=== PATIENT | male | born 1950 | race Caucasian/White ===

== ENCOUNTER 2017-04-04 23:54 | Emergency (ER) | payer BC ==
[2017-04-05] MEDS ORDERED: CLINDAMYCIN 600MG/50ML PREMIX 600 MG/50 ML BAG IVPB ONE (00:26)
[2017-04-05] MEDS ORDERED: HYDROCODONE/APAP 5/325MG TABLET PO ONE (00:26)
[2017-04-05 00:45] LABS: BASO % 0.1 % (0-6); EOS % 2.2 % (0-6); GRAN % 76.6 % (47-80); HEMATOCRIT 33.8 % (42.0-52.0); HEMOGLOBIN 10.5 gm/dl (14.0-18.0); LYMPH % 13.7 % (16-45); MEAN CELL VOLUME 78.8 fl (81-97); MEAN CORPUSCULAR HGB CONC 31.1 g/dl (32-36); MEAN PLATELET VOLUME 10.1 fl (7.4-10.4); MONO % 7.4 % (0-9); PLATELET COUNT 241 K/uL (130-400); RED BLOOD COUNT 4.29 M/uL (4.40-5.70); RED CELL DISTRIBUTION WIDTH 15.6 % (11.5-14.5); WHITE BLOOD COUNT W/O DIFF 10.1 K/uL (4.2-12.2)
[2017-04-05 00:46] LABS: MEAN CORPUSCULAR HEMOGLOBIN 24.4 pg (27-33)
--- NOTE | 2017-04-05 00:46 | Emergency Department Record ---
History of Present Illness - General Chief complaint: Bite Insect/other Stated complaint: INSECT BITE/HAND SWELLING Time Seen by Provider: 04/05/17 00:14 Source: Patient Mode of Arrival: Ambulatory Limitations: No limitations - History of Present Illness Initial comments: pt has had 2 small blisters or bites on his hand which he has poked and has been squeezing multiple time getting clear liquid out. now the finger and part of the had have swelling and erythems and tenderness MD complaint: Insect bite/sting Onset/Timin -: Days(s) Patient Tetanus UTD (within 5 yrs): Yes Location: R hand Severity scale (1-10): 5 Quality: Aching Consistency: Constant Improves with: None Treatments Prior to Arrival: Attempted to drain pus at home Treatment Prior to Arrival Comment:: ice - Related Data Home Medications Medication Instructions Recorded Confirmed Last Taken Amlodipine Besylate [Norvasc] 10 mg PO DAILY 04/04/17 04/05/17 04/04/17 Atorvastatin Calcium 20 mg PO QHS 04/04/17 04/05/17 04/04/17 Hydrocodone/Acetaminophen [[place] 1 tab PO Q6H PRN 04/04/17 04/05/17 Unknown 7.5mg/325mg] Losartan/Hydrochlorothiazide 1 each PO DAILY 04/04/17 04/05/17 04/04/17 [Hyzaar 100-12.5 Tablet] Metformin HCl [Metformin HCl ER] 1,000 mg PO BID 04/04/17 04/05/17 04/04/17 Previous Rx's Medication Instructions Recorded Clindamycin HCl 150 mg PO TID #20 capsule 04/05/17 Clindamycin HCl 300 mg PO TID #20 capsule 04/05/17 Allergies Allergy/AdvReac Type Severity Reaction Status Date / Time azithromycin [From Zithromax] Allergy HIVES Verified 04/04/17 23:57 sulfamethoxazole Allergy HIVES Verified 04/04/17 23:57 [From Bactrim] trimethoprim [From Bactrim] Allergy HIVES Verified 04/04/17 23:57 Travel Screening - Travel/Exposure Within Last 30 Days Have you traveled within the last 30 days?: No - Travel Symptoms Symptom Screening: None Review of Systems Reviewed: No additional complaints except as noted below Constitutional: Reports: As per HPI. Denies: Chills, Fever, Malaise, Night sweats, Weakness, Weight change Eyes: Reports: As per HPI. Denies: Eye discharge, Eye pain, Photophobia, Vision change ENT: Reports: As per HPI. Denies: Congestion, Dental pain, Ear pain, Epistaxis , Hearing loss, Throat pain Respiratory: Reports: As per HPI. Denies: Cough, Dyspnea, Hemoptysis, Stridor, Wheezes Cardiovascular: Reports: As per HPI. Denies: Arrhythmia, Chest pain, Dyspnea on exertion, Edema, Murmurs, Orthopnea, Palpitations, Paroxysmal nocturnal dyspnea, Rheumatic Fever, Syncope Endocrine: Reports: As per HPI. Denies: Fatigue, Heat or cold intolerance, Polydipsia, Polyuria Gastrointestinal: Reports: As per HPI. Denies: Abdominal pain, Constipation, Diarrhea, Hematemesis, Hematochezia, Melena, Nausea, Vomiting Genitourinary: Reports: As per HPI. Denies: Dysuria, Frequency, Hematuria, Incontinence, Retention, Testicular pain, Testicular mass, Urgency Musculoskeletal: Reports: As per HPI. Denies: Arthralgia, Back pain, Gout, Joint swelling, Myalgia, Neck pain Skin: Reports: As per HPI. Denies: Bruising, Change in color, Change in hair/ nails, Lesions, Pruritus, Rash Neurological: Reports: As per HPI. Denies: Abnormal gait, Confusion, Headache, Numbness, Paresthesias, Seizure, Tingling, Tremors, Vertigo, Weakness Psychiatric: Reports: As per HPI. Denies: Anxiety, Auditory hallucinations, Depression, Homicidal thoughts, Suicidal thoughts, Visual hallucinations Hematological/Lymphatic: Reports: As per HPI. Denies: Anemia, Blood Clots, Easy bleeding, Easy bruising, Swollen glands Past Medical History - SOCIAL HISTORY Smoking Status: Former smoker - RESPIRATORY Hx Respiratory Disorders: No - CARDIOVASCULAR Hx Cardio Disorders: Yes Hx Hypertension: Yes Comment:: high cholesterol - NEURO Hx Neuro Disorders: No - GI Hx GI Disorders: Yes Hx of Polyps: Yes (1 removed) - Hx Genitourinary Disorders: Yes Hx Kidney Stones: Yes (lithotripsy) - ENDOCRINE Hx Endocrine Disorders: Yes Hx Diabetes: Yes Hx Thyroid Disease: No - MUSCULOSKELETAL Hx Musculoskeletal Disorders: No - PSYCH Hx Psych Problems: No - HEMATOLOGY/ONCOLOGY Hx Hematology/Oncology Disorders: No Family Medical History Any Significant Family History?: Yes Hx Diabetes: Mother Hx Heart Disease: Father Hx HTN: Father, Mother Physical Exam - General General Appearance: Alert, Oriented x3, Cooperative, Mild distress - Head Head exam: Normal inspection - Eye Eye exam: Normal appearance, PERRL, EOMI Pupils: Normal accommodation - ENT ENT exam: Normal exam, Mucous membranes moist, Normal external ear exam, Normal orophraynx Ear exam: Normal external inspection. negative: External canal tenderness Nasal Exam: Normal inspection. negative: Discharge, Sinus tenderness Mouth exam: Normal external inspection, Tongue normal Teeth exam: Normal inspection. negative: Dental caries Throat exam: Normal inspection. negative: Tonsillar erythema, Tonsillar exudate - Neck Neck exam: Normal inspection, Full ROM. negative: Tenderness - Respiratory Respiratory exam: Normal lung sounds bilaterally. negative: Respiratory distress - Cardiovascular Cardiovascular Exam: Regular rate, Normal rhythm, Normal heart sounds - GI/Abdominal GI/Abdominal exam: Soft, Normal bowel sounds. negative: Tenderness - Rectal Rectal exam: Deferred - exam: Deferred - Extremities Extremities exam: Full ROM, Normal capillary refill, Tenderness Image of Hand: 1 - swelling, erythema, 2 tiny punctures, drainage - Back Back exam: Reports: Normal inspection, Full ROM. Denies: Muscle spasm, Rash noted, Tenderness - Neurological Neurological exam: Alert, CN II-XII intact, Normal gait, Oriented X3 - Psychiatric Psychiatric exam: Normal affect, Normal mood - Skin Skin exam: Dry, Intact, Normal color, Warm Course Vital Signs 04/05/17 00:02 Temperature 97.8 F Pulse Rate 62 Respiratory 18 Rate Blood Pressure 147/74 Pulse Ox 99 Medical Decision Making - Lab Data Result diagrams: 04/05/17 00:28 Disposition Disposition: Discharge Clinical Impression: Cellulitis of hand Disposition: Home, Self-Care Condition: (1) Good Instructions: Insect Bite or Sting (ED), Cellulitis (ED) Additional Instructions: recheck tomorrow. return sooner if worse. keep hand elevated. Prescriptions: Clindamycin HCl 150 mg PO TID #20 capsule Clindamycin HCl 300 mg PO TID #20 capsule Forms: Patient Portal Access Quality - Quality Measures Quality Measures: N/A - Blood Pressure Screening Blood Pressure Classification: Hypertensive Reading Systolic Measurement: 147 Diastolic Measurement: 74 Screening for High Blood Pressure: < First Hypertensive BP, F/U Documented > [ G8950] First Hypertensive Follow-up Interventions: Follow-up with rescreen GT 1 day and LT 4 weeks.
== END 2017-04-05 01:15 | disposition home or self-care (01) ==
LOC: ER 23:54
DX: S60.561A Insect bite (nonvenomous) of right hand, initial encounter (principal); L03.113 Cellulitis of right upper limb; W57.XXXA Bitten or stung by nonvenomous insect and other nonvenomous arthropods, initial encounter
CPT/HCPCS: 85025; 96365; 99284

== ENCOUNTER 2017-04-05 16:00 | Observation (INO) | payer BC ==
--- NOTE | 2017-04-05 16:47 | Emergency Department Record ---
History of Present Illness - General Chief complaint: Bite Insect/other Stated complaint: BITE ON RT HAND Time Seen by Provider: 04/05/17 16:47 Source: Patient Mode of Arrival: Ambulatory Limitations: No limitations - History of Present Illness Initial comments: The patient is here due to developing pain and redness to his R hand for the last 2 days. He first noticed 2 blisters on the dorsal R 2nd finger 2 days ago and popped them. Over the last 2 days the finger and hand have become more swollen, red and painful. He was here in the ER this Am and did receive IV Abx' s and was discharged on Clindamycin. Now he feels he is no better so he is back. MD complaint: Rash Onset/Timin -: Days(s) Hx Tetanus Toxoid Vaccination: Yes Year of Tetanus Vaccination: last two years Patient Tetanus UTD (within 5 yrs): Yes (states within year or two) Improves with: Cold therapy Treatments Prior to Arrival: Attempted to drain pus at home, Antibiotic - Related Data Home Medications Medication Instructions Recorded Confirmed Last Taken Amlodipine Besylate [Norvasc] 10 mg PO DAILY 04/04/17 04/05/17 04/05/17 11:00 10 Atorvastatin Calcium 20 mg PO QHS 04/04/17 04/05/17 04/04/17 13:00 20 Hydrocodone/Acetaminophen [[place] 1 tab PO Q6H PRN 04/04/17 04/05/17 04/05/17 11: 00 7.5mg/325mg] 7.5 Losartan/Hydrochlorothiazide 1 each PO DAILY 04/04/17 04/05/17 04/05/17 11:00 [Hyzaar 100-12.5 Tablet] Metformin HCl [Metformin HCl ER] 1,000 mg PO BID 04/04/17 04/05/17 04/05/17 11: 00 1000mg Previous Rx's Medication Instructions Recorded Clindamycin HCl 150 mg PO TID #20 capsule 04/05/17 Clindamycin HCl 300 mg PO TID #20 capsule 04/05/17 Allergies Allergy/AdvReac Type Severity Reaction Status Date / Time azithromycin [From Zithromax] Allergy HIVES Verified 04/04/17 23:57 sulfamethoxazole Allergy HIVES Verified 04/04/17 23:57 [From Bactrim] trimethoprim [From Bactrim] Allergy HIVES Verified 04/04/17 23:57 Travel Screening - Travel/Exposure Within Last 30 Days Have you traveled within the last 30 days?: No - Travel/Exposure Within Last Year Have you traveled outside the [place] in the last year?: No - Additonal Travel Details Have you been exposed to anyone with a communicable illness?: No - Travel Symptoms Symptom Screening: None Review of Systems Constitutional: Denies: Chills, Fever Eyes: Denies: Eye discharge ENT: Denies: Congestion Respiratory: Denies: Cough Past Medical History - SOCIAL HISTORY Smoking Status: Former smoker Alcohol Use: None Drug Use: None - RESPIRATORY Hx Respiratory Disorders: No - CARDIOVASCULAR Hx Cardio Disorders: Yes Hx Hypertension: Yes Comment:: high cholesterol - NEURO Hx Neuro Disorders: No - GI Hx GI Disorders: Yes Hx of Polyps: Yes (1 removed) - Hx Genitourinary Disorders: Yes Hx Kidney Stones: Yes (lithotripsy) - ENDOCRINE Hx Endocrine Disorders: Yes Hx Diabetes: Yes Hx Thyroid Disease: No - MUSCULOSKELETAL Hx Musculoskeletal Disorders: No - PSYCH Hx Psych Problems: No - HEMATOLOGY/ONCOLOGY Hx Hematology/Oncology Disorders: No Family Medical History Any Significant Family History?: No Hx Diabetes: Mother Hx Heart Disease: Father Hx HTN: Father, Mother Physical Exam - General General Appearance: Alert, Oriented x3, Cooperative, No acute distress - Head Head exam: Atraumatic, Normocephalic, Normal inspection - Eye Eye exam: Normal appearance, PERRL - Neck Neck exam: Normal inspection, Full ROM. negative: Tenderness - Respiratory Respiratory exam: Normal lung sounds bilaterally. negative: Respiratory distress - Cardiovascular Cardiovascular Exam: Regular rate, Normal rhythm, Normal heart sounds - GI/Abdominal GI/Abdominal exam: Soft, Normal bowel sounds. negative: Tenderness - Extremities Extremities exam: Tenderness (There is warmth, tenderness and erythema to the dorsal R hand and proximal 2nd finger. There is a healing wound at the dorsal R 2nd finger but there is no abscess present.). negative: Normal inspection, Full ROM (There is mildly decreased full ROM to the R 2nd finger due to the dorsal tenderness and fullness. There is no flexor surface tenderness or swelling.) Course Vital Signs 04/05/17 16:13 Temperature 98.6 F Pulse Rate [ 88 Left Radial] Respiratory 20 Rate Blood Pressure 148/67 [Left Arm] Pulse Ox 97 - Reevaluation(s) Reevaluation #1: The patient is doing Ok at this time. He denies any new symptoms. I did discuss the plan with him and did recommend hospital admission and the patient agreed. I then did discuss the case with Constance (MARY) and she does accept the admission. 04/05/17 18:01 Medical Decision Making - Data Complexity MDM Data: Labs Ordered and/or Reviewed - Lab Data Result diagrams: 04/05/17 17:13 04/05/17 17:13 Disposition Disposition: Admit Clinical Impression: Cellulitis of hand Disposition: Still a Patient at [facility] Decision to Admit: Admit from ER Decision to Admit Date: 04/05/17 Decision to Admit Time: 18:02 Condition: (2) Stable Forms: Patient Portal Access Time of Disposition: 18:02 Quality - Quality Measures Quality Measures: N/A - Blood Pressure Screening View Details: Yes Blood Pressure Classification: Hypertensive Reading Systolic Measurement: 148 Diastolic Measurement: 67 Screening for High Blood Pressure: < Pre-Hypertensive BP, F/U Documented > [ G8950] Pre-Hypertensive Follow-up Interventions: Follow-up with rescreen every year.
[2017-04-05] MEDS ORDERED: CLINDAMYCIN 600MG/4ML VIAL 600 MG in 0.9 % SODIUM CHLORIDE 100ML 100 ML IV ONE (16:50)
[2017-04-05 17:33] LABS: BASO % 0.1 % (0-6); EOS % 1.3 % (0-6); GRAN % 78.9 % (47-80); HEMOGLOBIN 10.7 gm/dl (14.0-18.0); LYMPH % 11.9 % (16-45); MEAN CELL VOLUME 78.3 fl (81-97); MEAN CORPUSCULAR HGB CONC 31.5 g/dl (32-36); MEAN PLATELET VOLUME 10.2 fl (7.4-10.4); MONO % 7.8 % (0-9); PLATELET COUNT 258 K/uL (130-400); RED BLOOD COUNT 4.34 M/uL (4.40-5.70); RED CELL DISTRIBUTION WIDTH 15.7 % (11.5-14.5); WHITE BLOOD COUNT W/O DIFF 10.1 K/uL (4.2-12.2)
[2017-04-05 17:40] LABS: MEAN CORPUSCULAR HEMOGLOBIN 24.6 pg (27-33)
[2017-04-05 17:51] LABS: ANION GAP 14.7 (7-16); BLOOD UREA NITROGEN 17 mg/dL (9-20); C-REACTIVE PROTEIN 3.5 mg/dL (0.0-0.9); CARBON DIOXIDE 24.3 mmol/L (22-30); EST GLOMERULAR FILTRATION RATE > 60 ml/min; GLUCOSE,RANDOM 168 mg/dL (70-110)
[2017-04-05] MEDS ORDERED: ACETAMINOPHEN 500 MG TABLET PO PRN (19:41)
[2017-04-05] MEDS: CLINDAMYCIN 600MG/4ML VIAL 600 MG in 0.9 % SODIUM CHLORIDE 100ML 100 ML IV SCH (19:46)
[2017-04-05] MEDS: HYDROCODONE/APAP 7.5/325MG TABLET PO PRN (20:29)
[2017-04-05] MEDS: ATORVASTATIN 20 MG TABLET PO SCH (22:36)
[2017-04-06] MEDS: CLINDAMYCIN 600MG/4ML VIAL 600 MG in 0.9 % SODIUM CHLORIDE 100ML 100 ML IV SCH (04:01)
[2017-04-06] MEDS: HYDROCODONE/APAP 7.5/325MG TABLET PO PRN ×3 (07:10→20:36)
[2017-04-06] MEDS: METFORMIN 500 MG TABLET PO SCH ×2 (07:11→17:41)
--- NOTE | 2017-04-06 07:59 | History & Physical ---
History of Present Illness - Date of Service Date of Service for History & Physical: 04/06/17 - History of Present Illness Admitting Diagnosis: 1. Right Hand Cellulitis History of Present Illness: 66yo male with CC of hand pain and swelling. He has history of T2DM, htn, high cholesterol, kidney stones. The patient is here due to developing pain and redness to his R hand for the last 2 days. He first noticed 2 blisters on the dorsal R 2nd finger 2 days ago and popped them. Over the last 2 days the finger and hand have become more swollen, red and painful. He was here in the ER this Am and did receive IV Abx' s and was discharged on Clindamycin. Now he feels he is no better so he is back. While in the ED, he was noted to have swelling of the right dorsum of the right hand and index finger. CBC showed mild microcytic anemia. CMP was unremarkable. patient was afebrile. Patient was started on IV clindamycin and admitted for cellulitis of the right hand. 04/06/17- Patient states he thinks his hand looks and feels about the same. He reports the swelling really started fter he took a knife at home and opened up the "water blister" on the back on his index finger. Says the redness had spread initially throughout the back of the hand and up some of his other fingers but that started to improve with IV antibiotics received in ED yesterday morning. Reports the hand is tender but he denies any numbness/ tingling. He is able to move his fingers but does not have full range of motion due to swelling. He denies fevers, chills. Has never had an infection like this before. PCP: Nicole Travel Screening - Travel/Exposure Within Last 30 Days Have you traveled within the last 30 days?: No - Travel/Exposure Within Last Year Have you traveled outside the [place] in the last year?: No - Additonal Travel Details Have you been exposed to anyone with a communicable illness?: No - Travel Symptoms Symptom Screening: None Review of Systems Constitutional: Denies: Chills, Fever Eyes: Denies: Eye discharge ENT: Denies: Congestion Respiratory: Denies: Cough Cardiovascular: Denies: Chest pain Gastrointestinal: Denies: Nausea, Vomiting Skin: Reports: Change in color, Rash Past Medical History - SOCIAL HISTORY Smoking Status: Former smoker Alcohol Use: None Drug Use: None - RESPIRATORY Hx Respiratory Disorders: No - CARDIOVASCULAR Hx Cardio Disorders: Yes Hx Hypertension: Yes Comment:: high cholesterol - NEURO Hx Neuro Disorders: No - GI Hx GI Disorders: Yes Hx of Polyps: Yes (1 removed) - Hx Genitourinary Disorders: Yes Hx Kidney Stones: Yes (lithotripsy) - ENDOCRINE Hx Endocrine Disorders: Yes Hx Diabetes: Yes Hx Thyroid Disease: No - MUSCULOSKELETAL Hx Musculoskeletal Disorders: No - PSYCH Hx Psych Problems: No - HEMATOLOGY/ONCOLOGY Hx Hematology/Oncology Disorders: No Family Medical History Any Significant Family History?: No Hx Diabetes: Mother Hx Heart Disease: Father Hx HTN: Father, Mother H&P Meds/Allergies - Allergies Allergies: Allergies Allergy/AdvReac Type Severity Reaction Status Date / Time azithromycin [From Zithromax] Allergy HIVES Verified 04/04/17 23:57 sulfamethoxazole Allergy HIVES Verified 04/04/17 23:57 [From Bactrim] trimethoprim [From Bactrim] Allergy HIVES Verified 04/04/17 23:57 - Home Medications Home Medications Medication Instructions Recorded Confirmed Last Taken Amlodipine Besylate [Norvasc] 10 mg PO DAILY 04/04/17 04/05/17 04/05/17 11:00 10 Atorvastatin Calcium 20 mg PO QHS 04/04/17 04/05/17 04/04/17 13:00 20 Hydrocodone/Acetaminophen [[place] 1 tab PO Q6H PRN 04/04/17 04/05/17 04/05/17 11: 00 7.5mg/325mg] 7.5 Losartan/Hydrochlorothiazide 1 each PO DAILY 04/04/17 04/05/17 04/05/17 11:00 [Hyzaar 100-12.5 Tablet] Metformin HCl [Metformin HCl ER] 1,000 mg PO BID 04/04/17 04/05/17 04/05/17 11: 00 1000mg Previous Rx's Medication Instructions Recorded Clindamycin HCl 150 mg PO TID #20 capsule 04/05/17 Clindamycin HCl 300 mg PO TID #20 capsule 04/05/17 - Active Medications Active Medications: Current Medications Acetaminophen (Tylenol 500mg Tab) 500 mg PO Q6H PRN PRN Reason: PAIN/TEMP Hydrocodone Bitart/Acetaminophen ([place] 7.5mg/325mg) 1 each PO Q6H PRN PRN Reason: Pain - General Last Admin: 04/06/17 07:10 Dose: 1 each Amlodipine Besylate (Norvasc) 10 mg PO DAILY [facility] Atorvastatin Calcium (Lipitor) 20 mg PO QHS [facility] Last Admin: 04/05/17 22:36 Dose: 20 mg Hydrochlorothiazide (Hctz 12.5mg) 12.5 mg PO DAILY [facility] Clindamycin Phosphate 600 mg/ (Sodium Chloride) 104 mls @ 200 mls/hr IV Q8H [facility] Stop: 04/10/17 19:42 Last Infusion: 04/06/17 04:40 Dose: Infused Losartan Potassium (Losartan Potassium) 100 mg PO DAILY [facility] Metformin HCl (Glucophage Ir) 1,000 mg PO BIDWM [facility] Last Admin: 04/06/17 07:11 Dose: 1,000 mg Physical Exam - Vital Signs Vital Signs: Vital Signs - Last 24 Hrs Temp Pulse Resp BP Pulse Ox 04/06/17 05:54 98.5 F 74 18 99/68 94 L 04/05/17 21:00 16 04/05/17 19:41 99.5 F 82 24 121/58 97 - General General Appearance: Alert, Oriented x3, Cooperative, No acute distress Limitations: No limitations - Head Head exam: Atraumatic, Normocephalic, Normal inspection - Eye Eye exam: Normal appearance, PERRL - Neck Neck exam: Normal inspection, Full ROM. negative: Tenderness - Respiratory Respiratory exam: Normal lung sounds bilaterally. negative: Respiratory distress - Cardiovascular Cardiovascular Exam: Regular rate, Normal rhythm, Normal heart sounds - GI/Abdominal GI/Abdominal exam: Soft, Normal bowel sounds. negative: Tenderness - Extremities Extremities exam: Normal capillary refill, Tenderness (There is warmth, tenderness and erythema to the dorsal R hand and proximal 2nd finger. There is a healing wound at the dorsal R 2nd finger but there is no abscess present.). negative: Normal inspection, Full ROM (There is mildly decreased full ROM to the R 2nd finger due to the dorsal tenderness and fullness. There is no flexor surface tenderness or swelling.) - Neurological Neurological exam: Alert, Oriented X3 - Psychiatric Psychiatric exam: Normal affect, Normal mood Results - Labs Result Diagrams: 04/06/17 08:13 04/06/17 08:13 VTE H&P Assessment - Risk for VTE Risk for VTE: Yes Risk Level: Moderate Risk Assessment Date: 04/06/17 Risk Assessment Time: 11:30 VTE Orders Placed or Will Be Placed: Yes Plan - Inpatient Certification Inpatient Certification: 04/07/17 07:26 risk factors: age, cellulitis of the right hand, T2DM, failed outpatient therapy estimated stay: 48-72H services: IV antibiotics - Detailed Diagnosis and Plan (1) Cellulitis of hand Current Visit: Yes Status: Acute Base Code: L03.119 - CELLULITIS OF UNSPECIFIED PART OF LIMB Comment: 04/06/17- Right hand cellulitis following patient's attempmt to open a blister. There is swelling, erythme and tenderness of the dorsum of the right hand and index finger. neurovascularly intact. WBC count wnl and afebrile. No drainage present to culture. -continue clindamycin 600mg IV q8h. will transition therapy if no continued improvement -continue to monitor for signs of compartment syndrome -vitals q8H -repeat labs qam (2) Full code status Current Visit: Yes Status: Acute Base Code: Z78.9 - OTHER SPECIFIED HEALTH STATUS Comment: 04/06/17- patient is full code (3) DVT prophylaxis Current Visit: Yes Status: Acute Base Code: [id number] - Comment: 04/06/17- patient moderate risk with age and restricted mobility -will add lovenox 40mg sq daily
[2017-04-06 08:19] LABS: BASO % 0.1 % (0-6); EOS % 2.2 % (0-6); GRAN % 74.1 % (47-80); HEMATOCRIT 35.7 % (42.0-52.0); HEMOGLOBIN 11.2 gm/dl (14.0-18.0); LYMPH % 15.7 % (16-45); MEAN CELL VOLUME 77.9 fl (81-97); MEAN CORPUSCULAR HGB CONC 31.4 g/dl (32-36); MEAN PLATELET VOLUME 9.6 fl (7.4-10.4); MONO % 7.9 % (0-9); PLATELET COUNT 248 K/uL (130-400); RED BLOOD COUNT 4.58 M/uL (4.40-5.70); RED CELL DISTRIBUTION WIDTH 15.9 % (11.5-14.5)
[2017-04-06 08:22] LABS: MEAN CORPUSCULAR HEMOGLOBIN 24.4 pg (27-33)
[2017-04-06 08:32] LABS: ALB/GLOB RATIO 1.7 (1.1-1.8); ALBUMIN 4.7 gm/dL (3.5-5.0); ALKALINE PHOSPHATASE 79 U/L (38-126); ALT/SGPT 45 U/L (21-72); ANION GAP 13.5 (7-16); AST/SGOT 18 U/L (17-59); BILIRUBIN,TOTAL 1.34 mg/dL (0.2-1.3); BLOOD UREA NITROGEN 17 mg/dL (9-20); CARBON DIOXIDE 24.5 mmol/L (22-30); CREATININE 0.9 mg/dL (0.66-1.25); EST GLOMERULAR FILTRATION RATE > 60 ml/min; GLUCOSE,RANDOM 148 mg/dL (70-110); TOTAL PROTEIN 7.5 gm/dL (6.3-8.2)
[2017-04-06] MEDS: AMLODIPINE BESYLATE 5MG TAB PO SCH (09:36)
[2017-04-06] MEDS: LOSARTAN POTASSIUM 100 MG TABLET PO SCH (09:36)
[2017-04-06] MEDS: HYDROCHLOROTHIAZIDE 12.5 MG CAPSULE PO SCH (09:36)
[2017-04-06] MEDS: CLINDAMYCIN 600MG/50ML PREMIX 600 MG/50 ML BAG IVPB SCH ×2 (11:32→20:35)
[2017-04-06] MEDS: ATORVASTATIN 20 MG TABLET PO SCH (21:19)
[2017-04-07] MEDS: CLINDAMYCIN 600MG/50ML PREMIX 600 MG/50 ML BAG IVPB SCH ×2 (03:51→11:13)
[2017-04-07 07:24] LABS: BASO % 0.2 % (0-6); GRAN % 57.9 % (47-80); HEMATOCRIT 36.1 % (42.0-52.0); HEMOGLOBIN 11.2 gm/dl (14.0-18.0); LYMPH % 28.6 % (16-45); MEAN CELL VOLUME 77.5 fl (81-97); MONO % 9.3 % (0-9); PLATELET COUNT 266 K/uL (130-400); RED BLOOD COUNT 4.66 M/uL (4.40-5.70); RED CELL DISTRIBUTION WIDTH 15.9 % (11.5-14.5); WHITE BLOOD COUNT W/O DIFF 6.5 K/uL (4.2-12.2)
[2017-04-07] MEDS: METFORMIN 500 MG TABLET PO SCH ×2 (07:30→17:12)
[2017-04-07] MEDS: HYDROCODONE/APAP 7.5/325MG TABLET PO PRN (07:30)
--- NOTE | 2017-04-07 07:40 | Physician Progress Note ---
Subjective - Date Date of Physician Progress Note: 04/07/17 - Subjective Subjective Comment: 04/07/17- Patient states his hand is feeling better. Says the swelling in his hand has gone down significantly. the right index finger is still swollen, tender and red. reports increased range of motion now that the swelling is coming down. He denies any drainage from the wound. No fevers, chills, numbness , tingling or nausea. Objective - Vital Signs Vital Signs: Vital Signs - Last 24 Hrs Temp Pulse Resp BP Pulse Ox 04/07/17 04:00 98.7 F 67 18 120/55 94 L 04/06/17 21:00 99.1 F 71 18 121/49 98 04/06/17 13:00 97.6 F 74 18 138/67 98 04/06/17 08:46 20 - General General Appearance: Alert, Oriented x3, Cooperative, No acute distress Limitations: No limitations - Head Head exam: Atraumatic, Normocephalic, Normal inspection - Eye Eye exam: Normal appearance, PERRL - Neck Neck exam: Normal inspection, Full ROM. negative: Tenderness - Respiratory Respiratory exam: Normal lung sounds bilaterally. negative: Respiratory distress - Cardiovascular Cardiovascular Exam: Regular rate, Normal rhythm, Normal heart sounds - GI/Abdominal GI/Abdominal exam: Soft, Normal bowel sounds. negative: Tenderness - Extremities Extremities exam: Normal capillary refill, Tenderness (There is warmth, tenderness and erythema to the dorsal R hand and proximal 2nd finger. There is a healing wound at the dorsal R 2nd finger but there is no abscess present.). negative: Normal inspection, Full ROM (There is mildly decreased full ROM to the R 2nd finger due to the dorsal tenderness and fullness. There is no flexor surface tenderness or swelling.) - Neurological Neurological exam: Alert, Oriented X3 - Psychiatric Psychiatric exam: Normal affect, Normal mood Assessment and Plan - Assessment and Plan (1) Cellulitis of hand Current Visit: Yes Status: Acute Base Code: L03.119 - CELLULITIS OF UNSPECIFIED PART OF LIMB Comment: 04/07/17- improving. swelling of the dorsum of right hand resolving and erythema of the hand has resolved. remains swelling and erythema of the 1st digit. neurovascularly intact. WBC count wnl and afebrile. No drainage present to culture. CRP peaked at 5.1 and trending downward at 4.2 today. -transition to oral clindamycin 300mg po q6H -continue to monitor for signs of compartment syndrome -vitals q8H -repeat labs qam (2) Full code status Current Visit: Yes Status: Acute Base Code: Z78.9 - OTHER SPECIFIED HEALTH STATUS Comment: 04/07/17- patient is full code (3) DVT prophylaxis Current Visit: Yes Status: Acute Base Code: [id number] - Comment: 04/07/17- patient moderate risk with age and restricted mobility -lovenox 40mg sq daily Results - Labs Result Diagrams: 04/07/17 07:14 04/07/17 07:14 Labs Last 24 Hours: Laboratory Results - last 24 hr 04/06/17 04/06/17 04/06/17 08:13 08:13 08:13 WBC 9.0 RBC 4.58 Hgb 11.2 L Hct 35.7 L MCV 77.9 L MCH 24.4 L MCHC 31.4 L RDW 15.9 H Plt Count 248 MPV 9.6 Gran % 74.1 Lymphocytes % 15.7 L Monocytes % 7.9 Eosinophils % 2.2 Basophils % 0.1 Sodium 139 Potassium 4.1 Chloride 101 Carbon Dioxide 24.5 Anion Gap 13.5 BUN 17 Creatinine 0.9 Estimated GFR > 60 Random Glucose 148 H Calcium 9.4 Total Bilirubin 1.34 H AST 18 ALT 45 Alkaline Phosphatase 79 C-Reactive Protein 5.1 H Total Protein 7.5 Albumin 4.7 Globulin 2.8 Albumin/Globulin Ratio 1.7 04/07/17 07:14 WBC 6.5 RBC 4.66 Hgb 11.2 L Hct 36.1 L MCV 77.5 L MCH 24.0 L MCHC 31.0 L RDW 15.9 H Plt Count 266 MPV 10.0 Gran % 57.9 Lymphocytes % 28.6 Monocytes % 9.3 H Eosinophils % 4.0 Basophils % 0.2 Sodium Potassium Chloride Carbon Dioxide Anion Gap BUN Creatinine Estimated GFR Random Glucose Calcium Total Bilirubin AST ALT Alkaline Phosphatase C-Reactive Protein Total Protein Albumin Globulin Albumin/Globulin Ratio DVT/PE Assessment - Risk for VTE Risk for VTE: No Risk Level: Moderate Risk Assessment Date: 04/06/17 Risk Assessment Time: 11:30 VTE Orders Placed or Will Be Placed: Yes - Active Medicaitons Current Medications: Current Medications Acetaminophen (Tylenol 500mg Tab) 500 mg PO Q6H PRN PRN Reason: PAIN/TEMP Hydrocodone Bitart/Acetaminophen ([place] 7.5mg/325mg) 1 each PO Q6H PRN PRN Reason: Pain - General Last Admin: 04/07/17 07:30 Dose: 1 each Amlodipine Besylate (Norvasc) 10 mg PO DAILY [facility] Last Admin: 04/06/17 09:36 Dose: 10 mg Atorvastatin Calcium (Lipitor) 20 mg PO QHS [facility] Last Admin: 04/06/17 21:19 Dose: 20 mg Enoxaparin Sodium (Lovenox) 40 mg SQ DAILY [facility] Hydrochlorothiazide (Hctz 12.5mg) 12.5 mg PO DAILY [facility] Last Admin: 04/06/17 09:36 Dose: 12.5 mg Clindamycin Phosphate (Cleocin 600 [id number]) 600 mg in 50 mls @ 50 mls/hr IVPB Q8H [facility] Last Infusion: 04/07/17 05:00 Dose: Infused Losartan Potassium (Losartan Potassium) 100 mg PO DAILY [facility] Last Admin: 04/06/17 09:36 Dose: 100 mg Metformin HCl (Glucophage Ir) 1,000 mg PO BIDWM [facility] Last Admin: 04/07/17 07:30 Dose: 1,000 mg AMI Plan - Labs Result Diagrams: 04/07/17 07:14 04/07/17 07:14
[2017-04-07 07:41] LABS: ANION GAP 14.5 (7-16); BLOOD UREA NITROGEN 17 mg/dL (9-20); C-REACTIVE PROTEIN 4.2 mg/dL (0.0-0.9); CARBON DIOXIDE 24.5 mmol/L (22-30); EST GLOMERULAR FILTRATION RATE > 60 ml/min; GLUCOSE,RANDOM 130 mg/dL (70-110)
[2017-04-07] MEDS ORDERED: ENOXAPARIN 40 MG/0.4 ML SYR SQ SCH (10:00)
[2017-04-07] MEDS: HYDROCHLOROTHIAZIDE 12.5 MG CAPSULE PO SCH (10:02)
[2017-04-07] MEDS: LOSARTAN POTASSIUM 100 MG TABLET PO SCH (10:03)
[2017-04-07] MEDS: AMLODIPINE BESYLATE 5MG TAB PO SCH (10:03)
--- NOTE | 2017-04-07 13:24 | Discharge Summary ---
Providers Discharge Summary Date: 04/07/17 Date of admission: 04/05/17 19:27 Expected Date of Discharge: 04/07/17 Attending physician: VAHID BARRAZA Primary care physician: MARIE BRODY D.O. Physical Exam - Vital Signs Vital Signs: Vital Signs - Last 24 Hrs Temp Pulse Resp BP Pulse Ox 04/07/17 08:17 20 04/07/17 04:00 98.7 F 67 18 120/55 94 L 04/06/17 21:00 99.1 F 71 18 121/49 98 - General General Appearance: Alert, Oriented x3, Cooperative, No acute distress Limitations: No limitations - Head Head exam: Atraumatic, Normocephalic, Normal inspection - Eye Eye exam: Normal appearance, PERRL - Neck Neck exam: Normal inspection, Full ROM. negative: Tenderness - Respiratory Respiratory exam: Normal lung sounds bilaterally. negative: Respiratory distress - Cardiovascular Cardiovascular Exam: Regular rate, Normal rhythm, Normal heart sounds - GI/Abdominal GI/Abdominal exam: Soft, Normal bowel sounds. negative: Tenderness - Extremities Extremities exam: Normal capillary refill, Tenderness (erythema and warmth between MCP and PIP of the right 1st digit, improved from previous day. Resolution of the swelling and erythema of the dorsum of right hand. No fluctuance, streaking or drainage present). negative: Normal inspection, Full ROM (There is mildly decreased full ROM to the R 2nd finger due to the dorsal tenderness and fullness. There is no flexor surface tenderness or swelling.) - Neurological Neurological exam: Alert, Oriented X3 - Psychiatric Psychiatric exam: Normal affect, Normal mood Hospitalization - Hospitalization Admission Diagnosis: 1. Right Hand Cellulitis - Problem List/Discharge Diagnosis (1) Cellulitis of hand Current Visit: Yes Status: Acute Base Code: L03.119 - CELLULITIS OF UNSPECIFIED PART OF LIMB Comment: 04/08/17- continues to improve. swelling and erythema of the hand has resolved. there remains some erythema and swelling of the 1st digit but improved since admission. neurovascularly intact. WBC count wnl and afebrile. No drainage present to culture. CRP peaked at 5.1 and trending downward at 4.2 today. -plan to discharge home today. Patietn will call monday to schedule follow up wtih Dr. Brody inthe next 7-10 days. -continue clindamycin 300mg po q6H for total of 10 days. patient has two previous scripts filled for clindamycin. Will have him take his 300mg capsules q6H for 5 more days and then may use the 150mg capsules 2 at each dose for 2 more days to complete full course. -continue to keep open wound covered with dressing changes bid (2) Full code status Current Visit: Yes Status: Acute Base Code: Z78.9 - OTHER SPECIFIED HEALTH STATUS Comment: 04/08/17- patient is full code (3) DVT prophylaxis Current Visit: Yes Status: Acute Base Code: [id number] - Comment: 04/08/17- patient moderate risk with age and restricted mobility -lovenox 40mg sq daily - Hospitalization Course Disposition: Home, Self-Care Hospital Course: 66yo male with CC of hand pain and swelling. He has history of T2DM, htn, high cholesterol, kidney stones. The patient is here due to developing pain and redness to his R hand for the last 2 days. He first noticed 2 blisters on the dorsal R 2nd finger 2 days ago and popped them. Over the last 2 days the finger and hand have become more swollen, red and painful. He was here in the ER this Am and did receive IV Abx' s and was discharged on Clindamycin. Now he feels he is no better so he is back. While in the ED, he was noted to have swelling of the right dorsum of the right hand and index finger. CBC showed mild microcytic anemia. CMP was unremarkable. patient was afebrile. Patient was started on IV clindamycin and admitted for cellulitis of the right hand. 04/06/17- Patient states he thinks his hand looks and feels about the same. He reports the swelling really started fter he took a knife at home and opened up the "water blister" on the back on his index finger. Says the redness had spread initially throughout the back of the hand and up some of his other fingers but that started to improve with IV antibiotics received in ED yesterday morning. Reports the hand is tender but he denies any numbness/ tingling. He is able to move his fingers but does not have full range of motion due to swelling. He denies fevers, chills. Has never had an infection like this before. 04/07/17- Patient states his hand is feeling better. Says the swelling in his hand has gone down significantly. the right index finger is still swollen, tender and red. reports increased range of motion now that the swelling is coming down. He denies any drainage from the wound. No fevers, chills, numbness , tingling or nausea. 04/08/17- Patient states the hand continues to feel better. Says the only tenderness he has is in his 1st digit between his MCP and PIP joints where there remains some swelling and redness. He denies drainage from the finger. no fevers or chills. Says he is ready to go home. PCP: Nicole Abnormal Labs: Abnormal Lab Results 04/06/17 04/06/17 04/06/17 Range/Units 08:13 08:13 08:13 Hgb 11.2 L (14.0-18.0) gm/dl Hct 35.7 L (42.0-52.0) % MCV 77.9 L (81-97) fl MCH 24.4 L (27-33) pg MCHC 31.4 L (32-36) g/dl RDW 15.9 H (11.5-14.5) % Lymphocytes % 15.7 L (16-45) % Monocytes % (0-9) % Random Glucose 148 H (70-110) mg/dL Total Bilirubin 1.34 H (0.2-1.3) mg/dL C-Reactive Protein 5.1 H (0.0-0.9) mg/dL 04/07/17 04/07/17 Range/Units 07:14 07:14 Hgb 11.2 L (14.0-18.0) gm/dl Hct 36.1 L (42.0-52.0) % MCV 77.5 L (81-97) fl MCH 24.0 L (27-33) pg MCHC 31.0 L (32-36) g/dl RDW 15.9 H (11.5-14.5) % Lymphocytes % (16-45) % Monocytes % 9.3 H (0-9) % Random Glucose 130 H (70-110) mg/dL Total Bilirubin (0.2-1.3) mg/dL C-Reactive Protein 4.2 H (0.0-0.9) mg/dL Condition at Discharge: (2) Stable Discharge Medications - Discharge Medications Home Medications: Ambulatory Orders Amlodipine Besylate [Norvasc] 10 mg PO DAILY 04/04/17 [Last Taken 04/05/17 11: 00 10] Atorvastatin Calcium 20 mg PO QHS 04/04/17 [Last Taken 04/04/17 13:00 20] Hydrocodone/Acetaminophen [[place] 7.5mg/325mg] 1 tab PO Q6H PRN 04/04/17 [Last Taken 04/05/17 11:00 7.5] Losartan/Hydrochlorothiazide [Hyzaar 100-12.5 Tablet] 1 each PO DAILY 04/04/17 [ Last Taken 04/05/17 11:00] Metformin HCl [Metformin HCl ER] 1,000 mg PO BID 04/04/17 [Last Taken 04/05/17 11:00 1000mg] Clindamycin HCl 150 mg PO TID #20 capsule 04/05/17 [Last Taken 04/05/17 11:15 450mg] Clindamycin HCl 300 mg PO TID #20 capsule 04/05/17 [Last Taken 04/05/17 11:15 450mg] Discharge Plan - Discharge Instructions Activity at Discharge: Resume Usual Activities As Tolerated Diet at Discharge: Diabetic Diet Wound Primary Dressing Type: Bandaid Additional Instructions: Please follow up with Dr. Brody in the next 7-10 days Continue clindamycin 300mg (green capsule) by mouth four times daily until gone then may use the clindamycin 150mg (orange capsule) 2 capsules four times daily for 2 more days. Continue to keep wound covered and change dressing twice daily Please call with any questions or concerns Return to ED for any new or worsening symptoms
[2017-04-07] MEDS: CLINDAMYCIN 150 MG CAP PO SCH ×2 (18:19→23:00)
[2017-04-07] MEDS: ATORVASTATIN 20 MG TABLET PO SCH (23:00)
[2017-04-08] MEDS: CLINDAMYCIN 150 MG CAP PO SCH ×2 (01:18→05:55)
[2017-04-08] MEDS: METFORMIN 500 MG TABLET PO SCH (08:18)
[2017-04-08 08:53] LABS: BASO % 0.2 % (0-6); EOS % 4.2 % (0-6); HEMOGLOBIN 12.2 gm/dl (14.0-18.0); LYMPH % 24.3 % (16-45); MEAN CELL VOLUME 77.4 fl (81-97); MEAN CORPUSCULAR HEMOGLOBIN 24.2 pg (27-33); MEAN CORPUSCULAR HGB CONC 31.3 g/dl (32-36); MEAN PLATELET VOLUME 9.9 fl (7.4-10.4); MONO % 8.3 % (0-9); PLATELET COUNT 303 K/uL (130-400); RED BLOOD COUNT 5.04 M/uL (4.40-5.70); RED CELL DISTRIBUTION WIDTH 16.1 % (11.5-14.5); WHITE BLOOD COUNT W/O DIFF 6.4 K/uL (4.2-12.2)
[2017-04-08] MEDS: LOSARTAN POTASSIUM 100 MG TABLET PO SCH (09:47)
[2017-04-08] MEDS: AMLODIPINE BESYLATE 5MG TAB PO SCH (09:47)
[2017-04-08] MEDS: HYDROCHLOROTHIAZIDE 12.5 MG CAPSULE PO SCH (09:47)
== END 2017-04-08 10:05 | disposition home or self-care (01) ==
LOC: ER 16:00 → OBSVTOIN 19:27 → MEDSURG 19:27 → INTOOBSV 19:27
PROVIDERS: ADMIT Family Medicine; ATTEND Family Medicine
DX: L03.113 Cellulitis of right upper limb (principal); I10 Essential (primary) hypertension; E78.00 Pure hypercholesterolemia, unspecified; E11.9 Type 2 diabetes mellitus without complications; Z79.84 Long term (current) use of oral hypoglycemic drugs
CPT/HCPCS: 99285 ×2; 96365; 96366; 85025 ×4; 86140 ×4; 80048 ×2; 80053; G0378 ×4; 99217; 99220; 99226

== ENCOUNTER 2019-08-11 21:38 | Emergency (ER) | payer BC ==
[2019-08-11 22:09] LABS: INFLUENZA A NEGATIVE (NEGATIVE); INFLUENZA B NEGATIVE (NEGATIVE)
[2019-08-11 22:55] LABS: ABSOLUTE NEUTROPHIL COUNT 6.95; HEMATOCRIT 41.2 % (42.0-52.0); HEMOGLOBIN 13.6 gm/dl (14.0-18.0); MEAN CELL VOLUME 84.6 fl (81-97); MEAN CORPUSCULAR HEMOGLOBIN 27.9 pg (27-33); PLATELET COUNT 170 K/uL (130-400); RED BLOOD COUNT 4.87 M/uL (4.40-5.70); RED CELL DISTRIBUTION WIDTH 14.4 % (11.5-14.5); WHITE BLOOD COUNT W/O DIFF 8.4 K/uL (4.2-12.2)
--- NOTE | 2019-08-11 23:04 | RADIOLOGY REPORT ---
EXAMINATION: Two View Chest Radiographs EXAM DATE: 08/11/2019 10:59 PM TECHNIQUE: Frontal and lateral views INDICATION: cough COMPARISON: None ENCOUNTER: Not applicable FINDINGS: The heart, mediastinum, and pulmonary vasculature are normal. No lung consolidation or pleural effu sions are present. There are a couple of scatted tiny nodules, possibly calcified granulomata. IMPRESSION: 1. No acute cardiopulmonary disease is present. 2. There are a couple of scatted tiny nodules, possibly calcified granulomata. Follow up as clinical ly warranted. Dictated by: Namrata Gutierrez MD on 08/11/2019 10:59 PM. .
--- NOTE | 2019-08-11 23:09 | Emergency Department Record ---
History of Present Illness - General Chief complaint: Flu Like Symptoms Stated complaint: BODY ACHES,COUGH,RUNNY NOSE Time Seen by Provider: 08/11/19 22:20 Source: Patient Mode of Arrival: Ambulatory Limitations: No limitations - History of Present Illness Initial comments: pt c/o body aches , congestion clear, productive cough, burning with cough. Onset/Timin -: Days(s) Severity: Mild Consistency: Constant Worsens with: Exertion Associated Symptoms: Shortness of breath - [place] Coma Scale Eye Response: (4) Open spontaneously Motor Response: (6) Obeys commands Verbal Response: (5) Oriented [place] Total: 15 - Related Data Previous Rx's Medication Instructions Recorded Benzonatate [Tessalon] 1 cap PO Q8H PRN #10 cap 08/11/19 Allergies Allergy/AdvReac Type Severity Reaction Status Date / Time azithromycin [From Zithromax] Allergy HIVES Verified 04/04/17 23:57 sulfamethoxazole Allergy HIVES Verified 04/04/17 23:57 [From Bactrim] trimethoprim [From Bactrim] Allergy HIVES Verified 04/04/17 23:57 Travel Screening - Travel/Exposure Within Last 30 Days Have you traveled within the last 30 days?: No - Travel/Exposure Within Last Year Have you traveled outside the [place] in the last year?: No - Additonal Travel Details Have you been exposed to anyone with a communicable illness?: No - Travel Symptoms Symptom Screening: None Review of Systems Reviewed: No additional complaints except as noted below Constitutional: Reports: As per HPI, Malaise. Denies: Chills, Fever, Night sweats, Weakness, Weight change Eyes: Reports: As per HPI. Denies: Eye discharge, Eye pain, Photophobia, Vision change ENT: Reports: As per HPI, Congestion. Denies: Dental pain, Ear pain, Epistaxis, Hearing loss, Throat pain Respiratory: Reports: As per HPI, Cough. Denies: Dyspnea, Hemoptysis, Stridor, Wheezes Cardiovascular: Reports: As per HPI. Denies: Arrhythmia, Chest pain, Dyspnea on exertion, Edema, Murmurs, Orthopnea, Palpitations, Paroxysmal nocturnal dyspnea, Rheumatic Fever, Syncope Endocrine: Reports: As per HPI. Denies: Fatigue, Heat or cold intolerance, Polydipsia, Polyuria Gastrointestinal: Reports: As per HPI. Denies: Abdominal pain, Constipation, Diarrhea, Hematemesis, Hematochezia, Melena, Nausea, Vomiting Genitourinary: Reports: As per HPI. Denies: Dysuria, Frequency, Hematuria, Incontinence, Retention, Testicular pain, Testicular mass, Urgency Musculoskeletal: Reports: As per HPI, Myalgia. Denies: Arthralgia, Back pain, Gout, Joint swelling, Neck pain Skin: Reports: As per HPI. Denies: Bruising, Change in color, Change in hair/nails, Lesions, Pruritus, Rash Neurological: Reports: As per HPI. Denies: Abnormal gait, Confusion, Headache, Numbness, Paresthesias, Seizure, Tingling, Tremors, Vertigo, Weakness Psychiatric: Reports: As per HPI. Denies: Anxiety, Auditory hallucinations, Depression, Homicidal thoughts, Suicidal thoughts, Visual hallucinations Hematological/Lymphatic: Reports: As per HPI. Denies: Anemia, Blood Clots, Easy bleeding, Easy bruising, Swollen glands Past Medical History - SOCIAL HISTORY Smoking Status: Former smoker - RESPIRATORY Hx Respiratory Disorders: No - CARDIOVASCULAR Hx Cardio Disorders: Yes Hx Hypertension: Yes Comment:: high cholesterol - NEURO Hx Neuro Disorders: No - GI Hx GI Disorders: Yes Hx of Polyps: Yes (1 removed) - Hx Genitourinary Disorders: Yes Hx Kidney Stones: Yes (lithotripsy) - ENDOCRINE Hx Endocrine Disorders: Yes Hx Diabetes: Yes Hx Thyroid Disease: No - MUSCULOSKELETAL Hx Musculoskeletal Disorders: No - PSYCH Hx Psych Problems: No - HEMATOLOGY/ONCOLOGY Hx Hematology/Oncology Disorders: No Family Medical History Any Significant Family History?: Yes Hx Diabetes: Mother Hx Heart Disease: Father Hx HTN: Father, Mother Physical Exam - General General Appearance: Alert, Oriented x3, Cooperative, No acute distress - Head Head exam: Normal inspection - Eye Eye exam: Normal appearance, PERRL, EOMI Pupils: Normal accommodation - ENT ENT exam: Normal exam, Mucous membranes moist, Normal external ear exam, Normal orophraynx Ear exam: Normal external inspection. negative: External canal tenderness Nasal Exam: Normal inspection. negative: Discharge, Sinus tenderness Mouth exam: Normal external inspection, Tongue normal Teeth exam: Normal inspection. negative: Dental caries Throat exam: Normal inspection. negative: Tonsillar erythema, Tonsillar exudate - Neck Neck exam: Normal inspection, Full ROM. negative: Tenderness - Respiratory Respiratory exam: Normal lung sounds bilaterally. negative: Respiratory distress - Cardiovascular Cardiovascular Exam: Regular rate, Normal rhythm, Normal heart sounds - GI/Abdominal GI/Abdominal exam: Soft, Normal bowel sounds. negative: Tenderness - Rectal Rectal exam: Deferred - exam: Deferred - Extremities Extremities exam: Normal inspection, Full ROM, Normal capillary refill. negative: Tenderness - Back Back exam: Reports: Normal inspection, Full ROM. Denies: Muscle spasm, Rash noted, Tenderness - Neurological Neurological exam: Alert, CN II-XII intact, Normal gait, Oriented X3 - Psychiatric Psychiatric exam: Normal affect, Normal mood - Skin Skin exam: Dry, Intact, Normal color, Warm Course Vital Signs 08/11/19 21:48 Temperature 99.3 F Pulse Rate 96 H Respiratory 20 Rate Blood Pressure 138/72 Pulse Ox 96 Medical Decision Making - Lab Data Result diagrams: 08/11/19 22:45 Lab Results 08/11/19 08/11/19 Range/Units 21:48 22:45 WBC 8.4 (4.2-12.2) K/uL RBC 4.87 (4.40-5.70) M/uL Hgb 13.6 L (14.0-18.0) gm/dl Hct 41.2 L (42.0-52.0) % MCV 84.6 (81-97) fl MCH 27.9 (27-33) pg MCHC 33.0 (32-36) g/dl RDW 14.4 (11.5-14.5) % Plt Count 170 (130-400) K/uL MPV 10.0 (7.4-10.4) fl Eosinophils % Not Reportable Basophils % Not Reportable Absolute Neutrophils 6.95 Influenza Type A Ag Negative (NEGATIVE) Influenza Type B Ag Negative (NEGATIVE) Disposition Disposition: Discharge Clinical Impression: Viral syndrome, Pleurisy Disposition: Home, Self-Care Condition: (1) Good Instructions: Viral Syndrome (ED), Pleurisy (ED) Additional Instructions: follow up with family doctor. return sooner if worse. push fluids Prescriptions: Benzonatate [Tessalon] 1 cap PO Q8H PRN #10 cap PRN Reason: Cough Forms: Patient Portal Access Quality - Quality Measures Quality Measures: N/A - Blood Pressure Screening Does Patient Have Any of the Following: No Blood Pressure Classification: Pre-Hypertensive BP Reading Systolic Measurement: 138 Diastolic Measurement: 72 Screening for High Blood Pressure: < Pre-Hypertensive BP, F/U Documented > [[id number]] Pre-Hypertensive Follow-up Interventions: Follow-up with rescreen every year.
[2019-08-11] MEDS ORDERED: BENZONATATE 100 MG CAPSULE PO ONE (23:15)
[2019-08-11] MEDS ORDERED: KETOROLAC 30 MG/ML VIAL IM ONE (23:15)
== END 2019-08-11 23:36 | disposition home or self-care (01) ==
LOC: ER 21:38
DX: R09.1 Pleurisy (principal); B34.9 Viral infection, unspecified; R91.8 Other nonspecific abnormal finding of lung field; I10 Essential (primary) hypertension; Z87.891 Personal history of nicotine dependence; E11.9 Type 2 diabetes mellitus without complications; Z79.84 Long term (current) use of oral hypoglycemic drugs
CPT/HCPCS: 71046; 85027; 87400; 96372; 99284; J1885